=== PATIENT | male | born 1990 | race Native Hawaiian/Other Pacific Islander ===

== ENCOUNTER 2021-01-20 19:53 | Emergency (ER) | payer OTHER ==
[~2021-01-20] VITALS: Ht 170.2 cm; Wt 98.4 kg
[2021-01-20 22:47] LABS: PLATELET COUNT 324 K/uL (142-355)
[2021-01-20 22:55] LABS: SODIUM 142 mmol/L (136-145)
[2021-01-20 23:03] LABS: PARTIAL THROMBOPLASTIN TIME 25.2 SECONDS (24.5-33.6)
[2021-01-21 02:15] VITALS: BP 134/88; TEMP 98.5
== END 2021-01-21 02:15 | disposition home or self-care (01) ==
LOC: ED 19:53
PROVIDERS: Family Medicine
DX: E16.1 Other hypoglycemia (principal); S00.83XA Contusion of other part of head, initial encounter; W18.39XA Other fall on same level, initial encounter; Y92.89 Other specified places as the place of occurrence of the external cause
CPT/HCPCS: 36415; 80053; 80307; 81000; 82550; 82948; 84484; 85027; 85379; 85610; 85730; 93005; 99283

== ENCOUNTER 2021-04-12 15:24 | Emergency (ER) | payer OTHER ==
[~2021-04-12] VITALS: Ht 170.2 cm; Wt 98.4 kg
[2021-04-12 15:30] VITALS: BP 135/71; TEMP 99.1
== END 2021-04-12 16:40 | disposition home or self-care (01) ==
LOC: ED 15:24
DX: R21 Rash and other nonspecific skin eruption (principal)
CPT/HCPCS: 96372; 99282; J2920